=== PATIENT | male | born 1995 | race Two or more races ===

== ENCOUNTER 2024-08-26 22:40 | Emergency (ER) | payer MEDICAID ==
[~2024-08-26] VITALS: Ht 190.5 cm; Wt 88.6 kg
[2024-08-26 22:52] VITALS: BP 139/83; PULSE 84; RESP 16; TEMP 98.2; O2SAT 98
[2024-08-27 01:09] LABS: PLATELET COUNT (AUTO) 265 K/uL (150-450); RED BLOOD CELL COUNT(AUTO) 5.24 MIL/uL (4.50-5.90); RED CELL DISTRIBUTION WIDTH 13.7 % (11.5-14.5); WHITE BLOOD COUNT (AUTO) 6.7 K/uL (4.5-11.0)
[2024-08-27 01:13] LABS: CALCIUM, TOTAL 8.5 mg/dL (8.8-10.5); CREATININE 1.23 mg/dL (0.60-1.30); GLOMERULAR FILTR. RATE CALC > 60 mL/min (>60); GLUCOSE,RANDOM 101 mg/dL (70-110); SODIUM SERUM 143 mmol/L (136-145); UREA NITROGEN, BLOOD 13 mg/dL (7-18)
[2024-08-27] MEDS: KETOROLAC TROMETHAMINE 30 MG/ML VIAL IM ONE (05:11)
[2024-08-27] MEDS: ACETAMINOPHEN 500 MG TABLET PO ONE (05:12)
[2024-08-27] MEDS: LIDOCAINE 5% TRANSDERMAL PATCH TD ONE (05:12)
[2024-08-27] MEDS ORDERED: METH-812 PO (05:51)
[2024-08-27] MEDS ORDERED: LIDO-57 TP (06:01)
== END 2024-08-27 06:10 | disposition home or self-care (01) ==
LOC: EMS 23:43
DX: S39.012A Strain of muscle, fascia and tendon of lower back, initial encounter (principal); F12.90 Cannabis use, unspecified, uncomplicated; X58.XXXA Exposure to other specified factors, initial encounter; Y93.89 Activity, other specified; Y92.89 Other specified places as the place of occurrence of the external cause; Y99.8 Other external cause status
CPT/HCPCS: 99284; 80048; 85025; 96372; J1885